=== PATIENT | male | born 1995 | race Caucasian/White ===

== ENCOUNTER 2017-06-12 18:35 | Emergency (ER) | payer SELFPAY ==
--- NOTE | 2017-06-12 19:22 | ER Document Report ---
ED Medical Screen (RME) - General Chief Complaint: Knee Pain Stated Complaint: RIGHT KNEE INJURY Time Seen by Provider: 06/12/17 19:19 Notes: pt states he was just playing around with balloons with friends and felt his right knee pop out. Not able to bear weight to right leg. No hx previous injury. c/o pain. I have greeted and performed a rapid initial assessment of this patient. A comprehensive ED assessment and evaluation of the patient, analysis of test results and completion of the medical decision making process will be conducted by additional ED providers. TRAVEL OUTSIDE OF THE [place] IN LAST 30 DAYS: No - Related Data Allergies/Adverse Reactions: No Known Allergies Allergy (Unverified 06/12/17 18:37) Physical Exam - Vital signs Vitals: Temp Pulse Resp BP Pulse Ox 99.2 F 87 18 134/74 H 99 06/12/17 19:06 06/12/17 19:06 06/12/17 19:06 06/12/17 19:06 06/12/17 19:06 Course - Vital Signs Vital signs: Temp Pulse Resp BP Pulse Ox 99.2 F 87 18 134/74 H 99 06/12/17 19:06 06/12/17 19:06 06/12/17 19:06 06/12/17 19:06 06/12/17 19:06
--- NOTE | 2017-06-12 19:39 | RADIOLOGY REPORT (SQ) ---
EXAM DESCRIPTION: KNEE RIGHT 4 VIEWS COMPLETED DATE/TIME: 06/12/2017 7:32 pm REASON FOR STUDY: injury COMPARISON: None. NUMBER OF VIEWS: Four views. TECHNIQUE: AP, lateral, and both oblique radiographic images acquired of the right knee. LIMITATIONS: None. FINDINGS: MINERALIZATION: Normal. BONES: No acute fracture or dislocation. No worrisome bone lesions. JOINT: No effusion. SOFT TISSUES: No soft tissue swelling. No radio-opaque foreign body. OTHER: No other significant finding. IMPRESSION: NEGATIVE STUDY OF THE RIGHT KNEE. NO RADIOGRAPHIC EVIDENCE OF ACUTE INJURY. TECHNICAL DOCUMENTATION: JOB ID: [id number] FRS- All Rights Reserved
--- NOTE | 2017-06-12 21:22 | ER Document Report ---
ED Extremity Problem, Lower - General Chief Complaint: Knee Pain Stated Complaint: RIGHT KNEE INJURY Time Seen by Provider: 06/12/17 19:19 Mode of Arrival: Ambulatory Information source: Patient Notes: Patient is a 20-year-old male comes emergency room with his and mother states around 5 PM tonight he and his were horsing around and he twisted and turned on his right leg and he went to the floor felt a pop and thought it was dislocated and then it felt like it popped back in. Patient denies any history of having right knee problems in the past. He is here to have it evaluated. He has no other injuries at this time. TRAVEL OUTSIDE OF THE [place] IN LAST 30 DAYS: No - HPI Patient complains to provider of: Injury Location: Knee Occurred: Other - 4 hours ago Where: Home Onset/Duration: Sudden, Persistent, Worse Quality of pain: Throbbing Severity: Moderate Pain Level: 3 Context: Wearing shoes Recent injury: Yes Associated symptoms: Unable to bear weight Exacerbated by: Movement, Walking Relieved by: Rest Other injuries: No other injuries - Related Data Allergies/Adverse Reactions: No Known Allergies Allergy (Unverified 06/12/17 18:37) Past Medical History - General Information source: Patient, Relative - Social History Smoking Status: Never Smoker Cigarette use (# per day): No Chew tobacco use (# tins/day): No Smoking Education Provided: No Frequency of alcohol use: None Drug Abuse: None Lives with: Family Family History: Reviewed & Not Pertinent Patient has suicidal ideation: No Patient has homicidal ideation: No Renal/ Medical History: Denies: Hx Peritoneal Dialysis Review of Systems - Review of Systems Constitutional: No symptoms reported EENT: No symptoms reported Cardiovascular: No symptoms reported Respiratory: No symptoms reported Gastrointestinal: No symptoms reported Genitourinary: No symptoms reported Male Genitourinary: No symptoms reported Musculoskeletal: Joint pain, Joint swelling Skin: No symptoms reported Hematologic/Lymphatic: No symptoms reported Neurological/Psychological: No symptoms reported -: Yes All other systems reviewed and negative Physical Exam - Vital signs Vitals: Temp Pulse Resp BP Pulse Ox 99.2 F 87 18 134/74 H 99 06/12/17 19:06 06/12/17 19:06 06/12/17 19:06 06/12/17 19:06 06/12/17 19:06 Interpretation: Hypertensive - General General appearance: Alert - Respiratory Respiratory status: No respiratory distress Chest status: Nontender Breath sounds: Normal. No: Decreased air movement, Nonproductive cough, Productive cough, Rales, Rhonchi, Stridor, Wheezing, Other - Cardiovascular Rhythm: Regular Heart sounds: Normal auscultation Murmur: No - Back Back: Normal, Nontender. No: Tender, Deformity/step-off, CVA tenderness, Vertebra tenderness, Scars, Scoliosis, Wounds, Other - Extremities General upper extremity: Normal inspection, Normal ROM General lower extremity: Tender Knee: Tender, Unable to bear weight, Other - Examination patient's right knee is very difficult because patient will not cooperate with me manipulating it. On external examination there is no deformity there is no erythema and there is very minimal swelling. When talking patient with distraction and palpating the leg I cannot find any point specific tenderness. Patient will not let me straight leg 100% out he fights to hold it in a flexed presentation. He has good popliteal pulse good dorsalis pedal pulses on the right side. He has good cap refill in nailbeds of the right foot. Calf: Normal, Nontender Course - Vital Signs Vital signs: Temp Pulse Resp BP Pulse Ox 99.2 F 87 18 134/74 H 99 06/12/17 19:06 06/12/17 19:06 06/12/17 19:06 06/12/17 19:06 06/12/17 19:06 - Diagnostic Test Radiology reviewed: Reports reviewed - Plain films of the right knee are negative for acute findings. - Transfer of Care Notes: 06/12/17 21:21 At this time it is very difficult to ascertain a good examination of the right knee. Patient fights constantly to keep it in a flexed state. There are no abrasions no ecchymosis and very minimal swelling if any. I am having the nurses place him in a knee immobilizer crutches and have him nonweightbearing for 3 days after 3 days he will attempt to bear weight if still painful he will need to see orthopedist. I am going to given the name of the orthopedic continuous pillowcase cutter today is Dr. Balderrama. Procedures - Immobilization Right Knee Immobilizer type: Crutches, Knee immobilizer Performed by: RN Post-Proc Neuro Vasc Exam: Normal Alignment checked and good: Yes Discharge - Discharge Clinical Impression: Internal derangement of right knee Strain of knee and leg, right Qualifiers: Encounter type: initial encounter Qualified Code(s): S86.911A - Strain of unspecified muscle(s) and tendon(s) at lower leg level, right leg, initial encounter Condition: Good Disposition: HOME, SELF-CARE Instructions: Use of Crutches ([facility]), Ice & Elevation ([facility]), Suspected Internal Knee Injury ([facility]), Knee Immobilizing Splint ([facility]), Oral Narcotic Medication ([facility] ), Sprained Knee ([facility]) Additional Instructions: Home and rest. Nonweightbearing for 3 days. After 3 days attempt to bear weight if it after 3 days it is still painful or still feels like it will give out continue to use the knee immobilizer crutches and contact orthopedist. I have given you the name of the orthopedic continuous pillowcase cutter today for this hospital you may contact his office to see if he can accommodate you. Should you have any concerns or problems return to ER for recheck. Prescriptions: Hydrocodone/Acetaminophen [[place] 5-325 mg Tablet] 1 tab PO Q6 PRN #12 tablet PRN Reason: Methylprednisolone [Medrol Dosepack (4 mg/Tab) 21 Tab/Dosepak] 4 mg PO ASDIR PRN #21 tab.ds.pk PRN Reason: Forms: Elevated Blood Pressure, Smoking Cessation Education, Parent Work Note Referrals: MEL MILLER MD [ACTIVE STAFF] - Follow up as needed
[2017-06-12 21:48] VITALS: BP 128/74
== END 2017-06-12 21:47 | disposition home or self-care (01) ==
LOC: ER 18:35
DX: S86.911A Strain of unspecified muscle(s) and tendon(s) at lower leg level, right leg, initial encounter (principal); M25.561 Pain in right knee; X50.1XXA Overexertion from prolonged static or awkward postures, initial encounter
CPT/HCPCS: 99283; 73564; L1830